=== PATIENT | female | born 1995 | race Caucasian/White ===

== ENCOUNTER 2024-07-10 21:12 | Emergency (ER) | payer OTHER ==
[~2024-07-10] VITALS: Ht 162.6 cm; Wt 71.0 kg
[2024-07-10 21:17] VITALS: BP 150/91; PULSE 85; RESP 18; TEMP 37.11408; O2SAT 98
[2024-07-10 23:39] VITALS: TEMP 98.8
[2024-07-10] MEDS: ACETAMINOPHEN 325MG TABLET PO ONE (23:39)
[2024-07-10] MEDS ORDERED: NAPR-1176 MT (23:55)
== END 2024-07-11 00:15 | disposition home or self-care (01) ==
LOC: ER 21:12
DX: M25.511 Pain in right shoulder (principal); M25.531 Pain in right wrist; Z79.1 Long term (current) use of non-steroidal anti-inflammatories (NSAID)
CPT/HCPCS: 73030; 73110; 99284